=== PATIENT | female | born 1955 | race Caucasian/White ===

== ENCOUNTER 2016-12-21 14:55 | Outpatient (CLI) | payer OTHER ==
[2016-01-27 19:00] VITALS: BP 142/82
== END 2016-12-21 14:56 ==
LOC: CARD 14:55
PROVIDERS: ATTEND Internal Medicine Cardiovascular Disease
DX: I10 Essential (primary) hypertension (principal); E66.9 Obesity, unspecified; G47.30 Sleep apnea, unspecified; I73.00 Raynaud's syndrome without gangrene; Z95.2 Presence of prosthetic heart valve
CPT/HCPCS: 99213